=== PATIENT | male | born 1965 | race Caucasian/White ===

== ENCOUNTER 2025-05-11 11:02 | Observation (INO) ==
[2025-05-11] MEDS ORDERED: NovoLIN R (or HumuLIN R) SUBCUT PRN (11:03)
[2025-05-11] MEDS ORDERED: PRECEDEX INJ VIAL ONE (11:09)
[2025-05-11] MEDS ORDERED: KETAMINE HCL ONE (11:09)
[2025-05-11] MEDS: LR 1,000 ML IV 1,000 ML IV SCH (11:49)
[2025-05-11 12:03] LABS: MEAN PLATELET VOLUME 9.0 fL (7.4-11.0)
[2025-05-11 12:09] LABS: RED CELL DISTRIBUTION WIDTH 13.4 % (11.6-16.5)
[2025-05-11 12:12] LABS: COR NA(FOR HYPERGLY) 140 mmol/L (136-145); CREATININE 1.00 mg/dL (0.70-1.30); eGFR NON BLACK RACES > 60 (>60)
[2025-05-11 12:33] VITALS: BMI 33.5
[2025-05-11] MEDS: DILAUDID INJ IVP PRN (12:45)
[2025-05-11] MEDS: OMNIPAQUE 350 mg/mL 100 mL BTL IVP NR (13:44)
[2025-05-11] MEDS: OMNIPAQUE 350 mg/mL 50 mL BTL IVP NR (13:44)
--- NOTE | 2025-05-11 14:53 | CT ---
EXAM: CTA AORTA WITH RUNOFF HISTORY: PVD OSTEOMYLITIS; COMPARISON: April 02, 2025 TECHNIQUE: CTA AORTA WITH RUNOFF 3D reconstructions utilizing axial MIPS imaging was performed and reviewed. Dose reduction techniques including Automated Exposure Control (AEC) and adjustment of mA and kV were utilized. Stenoses are measured using NASCET criteria. Normal is no stenosis. Mild is less than 50% stenosis. Moderate is 50-69% stenosis. Severe is 70% to 99% stenosis. Total occlusion is no detectable patent lumen. FINDINGS: Right posterior solid enhancing 2.2 x 2.2 cm renal mass seen image 81 concerning for malignancy. Mild atrophy right kidney. Cholecystectomy. Lung bases normal. No liver lesion. Spleen is normal. Pancreas normal. Adrenal glands are normal. IVC is normal. No adenopathy. Bowel loops are normal. Pelvis CT demonstrates sigmoid diverticulosis. No bladder stone. No pelvic adenopathy. No ascites. No bone lesion. No aortic aneurysm noted. Celiac artery is patent. Splenic artery is patent. Common hepatic artery is patent. Circumferential mild thickening is seen around the proximal SMA artery and there is short-segment occlusion image 53 involving the proximal SMA artery with distal reconstitution and no bowel ischemic changes noted. KARINA is patent. Bilateral external iliac arteries and bilateral common iliac arteries are patent with mild plaque disease. Bilateral renal arteries are patent. Bilateral internal iliac arteries are patent. Bilateral external iliac arteries and bilateral common femoral arteries are patent. Bilateral femoral and bilateral profunda are patent. Bilateral popliteal arteries demonstrate no occlusion or aneurysm. Three-vessel runoff seen to both ankles with slightly decreased left lower leg contrast attenuation compared to the right lower leg which is nonspecific with no proximal occlusive disease No definite bone destruction seen of the bilateral feet or calcaneal margins. No fracture. No bone lesion IMPRESSION: 1. Abnormal Short-segment occlusion proximal SMA with no bowel ischemic changes. Recommend vascular surgeon consult to assess for stenting 2. No definite osteomyelitis changes of the feet, however since there is a history of PVD osteomyelitis, MRI imaging could better evaluate 3. Three-vessel runoff seen to both ankles with no vascular occlusion or high-grade stenosis of the lower legs 4. Right renal mass concerning for malignancy. Recommend urology consult for biopsy/partial nephrectomy assessment. The mass is larger compared to CT February 20, 2023 and compared to August 21, 2023 THIS IS AN ELECTRONICALLY VERIFIED FINAL REPORT 05/11/2025 2:50 PM - Electronically signed by Yasemin Swanson MD
[2025-05-11] MEDS: NS 250 ML IV 25 ML IV PRN (16:03)
[2025-05-11] MEDS: ZOSYN VIAL 3.375 GRAMS 3.375 G in NS 100 ML IV 100 ML IV SCH (16:03)
[2025-05-11] MEDS: DEMADEX PO SCH (16:27)
[2025-05-11] MEDS: OMNIPAQUE 350 mg/mL 100 mL BTL 100 ML ONE (18:48)
[2025-05-11] MEDS: NS 250 ML IV 250 ML IV ONE (18:48)
[2025-05-11] MEDS: OMNIPAQUE 350 mg/mL 50 mL BTL 50 ML ONE (18:48)
--- NOTE | 2025-05-11 18:59 | DR.H&P ---
H&P History & Physical for Day of: H&P Date: 05/11/25 Chief Complaint Chief Complaint: pain and open wound right great toe. History of Present Illness History of Present Illness: Is a 89-year-old male with history of hypertension and diabetes who is seen in my office yesterday with significant pain and swelling of the left great toe with cyanosis. There is question of osteomyelitis of this area and he has failed p.o. antibiotics. I agree indices are 1.04 and right 0.98 but most waveforms are monophasic. Patient was admitted today for IV antibiotics and for evaluation with CT angiogram. Past Medical History Past Medical History: CVA (Involve left arm and left leg but no residual), Diabetes, Dyslipidemia, GERD and Hypertension Past Surgical History Surgical History: Appendectomy and Tonsillectomy Family History Family Medical History: Diabetes Mellitus Social History Does patient currently use any type of tobacco product: No Have you used tobacco products in the last 12 months: Yes Type of Tobacco Use: Cigarettes How many years tobacco product used: 40 Packs per day or dips/chews per day: 1 Does any household member use tobacco: No Alcohol Use: None Drug Use: None Medications Home Medications: Home Medications Medication Instructions Recorded Confirmed Type apixaban 5 mg tablet (Eliquis) 5 mg PO BID 05/11/25 05/11/25 History aspirin 81 mg tablet 81 mg PO QDAY 05/11/25 05/11/25 History fenofibrate nanocrystallized 145 145 mg PO QDAY 05/11/25 05/11/25 History mg tablet lisinopril 20 mg tablet 20 mg PO QDAY 05/11/25 05/11/25 History melatonin 10 mg disintegrating 10 mg PO HS 05/11/25 05/11/25 History tablet metformin 500 mg tablet 1,000 mg PO BID 05/11/25 05/11/25 Histor y omega-3s 720 mg-dha 300 mg-epa 360 2 cap PO QDAY 05/11/25 05/11/25 History mg-fish oil 1,200 mg capsule omeprazole 40 mg capsule,delayed 40 mg PO QDAY 05/11/25 05/11/25 History release ropinirole 2 mg tablet 2 mg PO TID 05/11/25 05/11/25 History torsemide 20 mg tablet 20 mg PO Q OTHER DAY 10/23/25 10/23/25 H istory I am unsure as to why he is on Eliquis. Allergies Allergies Allergy/AdvReac Type Severity Reaction Status Date / Time No Known Drug Allergies Allergy Unknown Verified 05/11/25 12:39 (NKDA) Labs 05/11/25 11:44 05/11/25 11:44 Labs: Laboratory WBC 11.9 X10^3/uL (3.6-10.0) H 05/11/25 11:44 RBC 5.41 X10^6/uL (4.7-6.0) 05/11/25 11:44 Hgb 15.3 g/dL (13.5-18.0) 05/11/25 11:44 Hct 45.7 % (42.0-54.0) 05/11/25 11:44 MCV 84.5 fL (80.0-100.0) 05/11/25 11:44 MCH 28.3 pg (27.0-34.0) 05/11/25 11:44 MCHC 33.5 g/dL (33.0-35.0) 05/11/25 11:44 RDW 13.4 % (11.6-16.5) 05/11/25 11:44 Plt Count 301 X10^3/uL (150.0-450.0) 05/11/25 11:44 MPV 9.0 fL (7.4-11.0) 05/11/25 11:44 Neut % (Auto) 79.3 % (42.0-75.0) H 05/11/25 11:44 Lymph % (Auto) 11.0 % (21.0-51.0) L 05/11/25 11:44 [facility] % (Auto) 8.2 % (0.0-13.0) 05/11/25 11:44 Eos % (Auto) 1.1 % (0.9-2.9) 05/11/25 11:44 Baso % (Auto) 0.4 % (0.2-1.0) 05/11/25 11:44 Neut # (Auto) 9.5 x10^3/uL (2.2-4.8) H 05/11/25 11:44 Lymph # (Auto) 1.3 X10^3/uL (1.3-2.9) 05/11/25 11:44 [facility] # (Auto) 1.0 x10^3/uL (0.3-0.8) H 05/11/25 11:44 Eos # (Auto) 0.1 x10^3/uL (0.0-0.2) 05/11/25 11:44 Baso # (Auto) 0.1 X10^3/uL (0.0-0.1) 05/11/25 11:44 Absolute Nucleated RBC 0.0 /100WBC 05/11/25 11:44 Sodium 138 mmol/L (136-145) 05/11/25 11:44 Corrected Sodium 140 mmol/L (136-145) 05/11/25 11:44 Potassium 4.3 mmol/L (3.5-5.1) 05/11/25 11:44 Chloride 102 mmol/L (98-107) 05/11/25 11:44 Carbon Dioxide 27.3 mmol/L (21-32) 05/11/25 11:44 BUN 15 mg/dL (7-18) 05/11/25 11:44 Creatinine 1.00 mg/dL (0.70-1.30) 05/11/25 11:44 Est GFR (MDRD) Af Amer > 60 (>60) 05/11/25 11:44 Est GFR (MDRD) Non-Af > 60 (>60) 05/11/25 11:44 Glucose 176 mg/dL (65-99) H 05/11/25 11:44 POC Glucose (mg/dL) 117 mg/dL (65-99) H 05/11/25 15:58 Calcium 9.1 mg/dL (8.5-10.1) 05/11/25 11:44 Corrected Calcium TNP 05/11/25 11:44 Total Bilirubin 0.50 mg/dL (0.2-1.0) 05/11/25 11:44 AST 15 Units/L (15-37) 05/11/25 11:44 ALT 30 Units/L (12-78) 05/11/25 11:44 Alkaline Phosphatase 115 Units/L (46-116) 05/11/25 11:44 Total Protein 8.0 g/dL (6.4-8.2) 05/11/25 11:44 Albumin 3.8 g/dL (3.4-5.0) 05/11/25 11:44 Globulin 4.2 g/dL (2.5-4.5) 05/11/25 11:44 Albumin/Globulin Ratio 0.9 Ratio (1.1-2.1) L 05/11/25 11:44 CT angiogram shows no obvious significant arterial stenosis or occlusion of the aorta or lower extremities. However, patient does have evidence of occlusion of the proximal superior enteric artery. Other arteries to the gut are intact. He denies any type of pain consistent with intestinal angina. There is also evidence of a suspicious mass of the right kidney which is larger than previous CAT scans in 2022 and 2023. Patient will need urology consultation for this. Review of Systems Constitutional: See HPI Eyes: No Symptoms Reported ENT: No Symptoms Reported Respiratory: No Symptoms Reported Cardiovascular: No Symptoms Reported Gastrointestinal: No Symptoms Reported Genitourinary: No Symptoms Reported Musculoskeletal: See HPI Skin: See HPI Neurological: No Symptoms Reported Physical Exam Vital Signs: Vital Signs Temperature 97.5 F Temperature 98 F Pulse Rate [Right Radial] 74 Pulse Rate [Right Radial] 101 Respiratory Rate 18 Respiratory Rate 16 Respiratory Rate 16 Respiratory Rate 16 Blood Pressure [Right Arm] 153/82 Blood Pressure [Right Arm] 152/88 Blood Pressure [Right Arm] 179/91 O2 Sat by Pulse Oximetry 97 O2 Sat by Pulse Oximetry 98 Oriented: Normal, Time, Person and Place Eyes: Normal Ear: Normal Nose: Normal Throat: Normal Respiratory: Clear Throughout Cardiovascular: Normal and Other (Palpable femoral pulses bilaterally. I can palpate no distal pulses either ankle) : Normal Auscultation: Bowel Sounds: Normal Palpation: Normal Tenderness: Normal Skin: Wound (Cyanotic discoloration of the left great toe with small open wounds less than 2 mm of the medial aspect of the great toe with small amount of purulent drainage) Psychiatric: Normal Mood Description: Calm Affect: Normal Speech Pattern: Clear and Appropriate Assessment/Plan (1) Atherosclerosis of [place] arteries of extremities with rest pain, right leg: Status: Acute Plan: Patient is no obvious stenosis or occlusion arterial structures right leg which would require intervention. Will continue him on antibiotics and consult podiatry in regards to his left great toe. (2) Atherosclerosis of [place] arteries of extremities with rest pain, left leg: Status: Acute Plan: No obvious arterial problem of the left leg (3) Type 2 diabetes mellitus without complications: Status: Acute Plan: 1800-calorie ADA diet, sliding scale insulin for now (4) Hyperlipidemia: Status: Acute Plan: Home medications (5) Occlusion of superior mesenteric artery: Status: Acute Plan: The occlusion of the proximal superior mesenteric artery is symptomatic and will not require treatment (6) Right kidney mass: Status: Acute Plan: Patient will need referral to urology for consideration of biopsy of this mass (7) Essential (primary) hypertension: Status: Acute Plan: home medications Review H&P Reviewed: Yes Patient was examined?: Yes
[2025-05-11] MEDS ORDERED: SNACK - Diabetic Appropriate PO SCH (20:00)
[2025-05-11] MEDS: SNACK - Diabetic Appropriate PO SCH (20:22)
[2025-05-11] MEDS: ELIQUIS PO SCH (21:52)
[2025-05-11] MEDS: MELATONIN PO SCH (21:52)
[2025-05-11] MEDS: REQUIP PO SCH (21:52)
[2025-05-11] MEDS: NovoLIN R (or HumuLIN R) SUBCUT PRN (21:53)
[2025-05-12 05:56] LABS: MEAN PLATELET VOLUME 9.4 fL (7.4-11.0); RED CELL DISTRIBUTION WIDTH 13.3 % (11.6-16.5)
[2025-05-12 06:08] LABS: COR CA(FOR HYPOALB) 8.9 mg/dL (8.5-10.1); COR NA(FOR HYPERGLY) 138 mmol/L (136-145); CREATININE 1.03 mg/dL (0.70-1.30); eGFR NON BLACK RACES > 60 (>60)
--- NOTE | 2025-05-12 08:01 | RAD ---
EXAM: FOOT, LEFT HISTORY: LEFT FOOT ULCER ; DM, CVA, HTN, GERD SX: APPY, TONSILS, NECK COMPARISON: 09/23/2024 TECHNIQUE: 3 views FINDINGS: No focal cortical destruction or aggressive periosteal reaction. No acute fracture or dislocation. Moderate hindfoot and midfoot osteoarthritis. Degenerative calcaneal heel spurs. No radiopaque foreign bodies. IMPRESSION: No acute osseous findings. No radiographic evidence of osteomyelitis. THIS IS AN ELECTRONICALLY VERIFIED FINAL REPORT 05/12/2025 7:59 AM - Electronically signed by Selvin Barrera MD
[2025-05-12] MEDS ORDERED: OMEGA DHA EPA FISH OIL PO SCH (09:00)
[2025-05-12] MEDS: ASPIRIN 81 MG CHEWTAB PO SCH (10:53)
[2025-05-12] MEDS: TRICOR TAB 145 MG PO SCH (10:53)
[2025-05-12] MEDS: ZESTRIL TAB 20 MG PO SCH (10:53)
--- NOTE | 2025-05-12 23:19 | NOTE.SOAP ---
Soap Note Note for Day of Date of Exam: 05/12/25 Subjective Data Subjective Data: Patient seen by Podiatry and they would like to debride the left great toe but they are concerned about the duskiness of the great toe despite the normal apppearing CTA . Objective Data Temperature: 98.1 F Pulse Rate: 72 Respiratory Rate: 19 Blood Pressure: 150/99 O2 Sat by Pulse Oximetry: 97 Objective Data: Duskiness of left great toe Assessment Assessment: Painful , dusky left great toe . WBC=10.6 Plan Plan: Contine iv antibiotics and will consider on table arteriogram.
[2025-05-12] MEDS: ZESTRIL TAB 20 MG ONE (23:55)
[2025-05-13 06:51] LABS: MEAN PLATELET VOLUME 8.7 fL (7.4-11.0); RED CELL DISTRIBUTION WIDTH 13.3 % (11.6-16.5)
[2025-05-13 07:03] LABS: COR CA(FOR HYPOALB) 9.2 mg/dL (8.5-10.1); COR NA(FOR HYPERGLY) 140 mmol/L (136-145); CREATININE 1.08 mg/dL (0.70-1.30); eGFR NON BLACK RACES > 60 (>60)
--- NOTE | 2025-05-13 08:02 | MD.NOTE ---
Provider Note Note Note: Patient is a 59 y/o male who was sent in by Dr. Perdomo after being seen in our office and Dr. Perdomo's office for discoloration to his left great toe. Patient had been seen in our office on 05/09 for increasing pain and discoloration to his toe. He states he has been soaking it in epsom salt bath and also has put hydrogen peroxide on the toe. He noticed that it was getting worse so he came to our office. Onn evaluation, pulses were nonpalpable so Dr. Flanagan had the patient urgently follow up with Dr. Perdomo. Dr. Perdomo ordered CTA on patient. O: Vascular: Dorsalis pedis and posterior tibial pulses are nonpalpable. Capillary refill time is instantaneous. Left great toe is cold to touch. Left fifth toe is cool to touch. Dermatological toe with medial callus. has purple appearance but instant CFT to the toe. Derm: Left great hallux has wound that is 5mm x 3mm x 1mm to sub Q. healthy, no purulence, no fluctuance, no crepitus, no probe to bone. Left hallux is cyanotic in nature. Left fifth digit is slightly cyanotic in nature as well. Musculoskeletal: The patient has minor lesser digital contractures. These are fully flexible, however. The patient does have dorsal exostosis at the TMT region. The patient has high arch foot type. The patient has increased calcaneal inclination angle. He does have a posterior spur in the posterior aspect of the calcaneus bilaterally. There are no areas of irritation or ulceration. The patient has good range of motion to the ankle but does have gastroc soleus equinus with the knee fully extended. With the knee bent, able to get to about 5 degrees above neutral. The patient has no other acute issues. Neurological Light touch and protective sensation are intact to the toes. A: Pressure ulcer of other site, stage 3 - wound with no improvement from office evaluation. still very painful. suspect artery . had ABIs without issues on pressures but abnormal waveforms. P: - CTA performed, discussed with Dr. Perdomo, he will take patient to OR likely on Thursday for intervention - XR reviewed, no concerns for Osteomyelitis at this time, patient had MRI performed recently that is consistent with these findings. - Patient started on IV abx per Dr. Perdomo - Patient can WBAT at this time - Will continue to follow and assess after vascular intervention Please contact me with any questions!\ Dr. Laquita Riley
[2025-05-13] MEDS ORDERED: ZESTRIL TAB 20 MG ONE (09:54)
[2025-05-14 06:19] LABS: MEAN PLATELET VOLUME 8.8 fL (7.4-11.0); RED CELL DISTRIBUTION WIDTH 13.4 % (11.6-16.5)
[2025-05-14 06:26] LABS: COR CA(FOR HYPOALB) 9.3 mg/dL (8.5-10.1); COR NA(FOR HYPERGLY) 140 mmol/L (136-145); CREATININE 1.18 mg/dL (0.70-1.30); eGFR NON BLACK RACES > 60 (>60)
[2025-05-14] MEDS ORDERED: ZESTRIL TAB 20 MG ONE (08:42)
[2025-05-14] MEDS ORDERED: GLUCOPHAGE ONE (08:42)
[2025-05-14] MEDS: GLUCOPHAGE PO SCH (09:42)
--- NOTE | 2025-05-14 17:50 | NOTE.SOAP ---
Soap Note Note for Day of Date of Exam: 05/13/25 Subjective Data Subjective Data: Pain better left great toe but still dusky. Objective Data Temperature: 98.4 F Pulse Rate: 74 Respiratory Rate: 19 Blood Pressure: 170/80 O2 Sat by Pulse Oximetry: 96 Objective Data: as above Assessment Assessment: cellulitis left great toe, possible vascular insufficiency Plan Plan: continue IV antibiotics and plan ontable arteriogram.
--- NOTE | 2025-05-14 17:56 | NOTE.SOAP ---
Soap Note Note for Day of Date of Exam: 05/14/25 Subjective Data Subjective Data: Pain is better left great toe. Duskiness remains. No drainage. Continues IV antibiotics Objective Data Temperature: 98.4 F Pulse Rate: 74 Respiratory Rate: 19 Blood Pressure: 170/80 O2 Sat by Pulse Oximetry: 96 Objective Data: Duskiness exists of left great toe. No drainage. No obvious cellulitis Assessment Assessment: Dusky painful left great toe. Arteriogram right is normal. May need on table arteriogram Plan Plan: as above
[2025-05-14] MEDS: COLACE CAP 100 MG PO SCH (21:57)
[2025-05-15 05:56] LABS: MEAN PLATELET VOLUME 9.5 fL (7.4-11.0); RED CELL DISTRIBUTION WIDTH 13.4 % (11.6-16.5)
[2025-05-15 06:25] LABS: COR NA(FOR HYPERGLY) 139 mmol/L (136-145); CREATININE 1.24 mg/dL (0.70-1.30); eGFR NON BLACK RACES > 60 (>60)
[2025-05-15] MEDS ORDERED: GLUCOPHAGE ONE (07:55)
[2025-05-15] MEDS ORDERED: ZESTRIL TAB 20 MG ONE (07:55)
[2025-05-16] MEDS ORDERED: HIBICLENS WASH ONE (03:47)
[2025-05-16] MEDS: HIBICLENS WASH EXT ONE (04:35)
[2025-05-16] MEDS: GLUCOPHAGE ONE (04:41)
[2025-05-16] MEDS ORDERED: ZESTRIL TAB 20 MG ONE (08:09)
[2025-05-16] MEDS: NS 1,000 ML IV 1,000 ML ONE (13:39)
[2025-05-16] MEDS: ZOFRAN INJ 4 MG VIAL ONE (13:55)
[2025-05-16] MEDS: VERSED ONE (13:55)
[2025-05-16] MEDS: REGLAN INJ 10 MG VIAL ONE (13:55)
[2025-05-16] MEDS: DECADRON INJ ONE (13:55)
[2025-05-16] MEDS: FENTANYL VIAL INJ 100 mcg ONE (13:55)
[2025-05-16] MEDS: DIPRIVAN VIAL 20 ML ONE ×2 (13:56→15:03)
[2025-05-16] MEDS: HEPARIN SODIUM INJ 5000 UNITS ONE (13:56)
[2025-05-16] MEDS: OFIRMEV IV 1000 MG VIAL 1,000 MG/100 ML VIAL IV ONE (13:56)
[2025-05-16] MEDS: XYLOCAINE 2 % (PLAIN) ONE (13:56)
[2025-05-16] MEDS: NS 1,000 ML IV 900 ML IV PRN (14:15)
[2025-05-16] MEDS: PEPCID 20 MG VIAL ONE (14:20)
[2025-05-16] MEDS: VERSED IVP PRN (14:30)
[2025-05-16] MEDS ORDERED: XYLOCAINE 2 % (PLAIN) PRN (14:32)
[2025-05-16] MEDS: PROPOFOL IVP PRN (14:33)
[2025-05-16] MEDS: PRECEDEX INJ VIAL IVP PRN (14:33)
[2025-05-16] MEDS: FENTANYL VIAL INJ 100 mcg IVP PRN (14:34)
--- NOTE | 2025-05-16 14:34 | EKG ---
Test Reason : preop Blood Pressure : */* mmHG Vent. Rate : 68 BPM Atrial Rate : 68 BPM P-R Int : 144 ms QRS Dur : 96 ms QT Int : 392 ms P-R-T Axes : 18 29 59 degrees QTc Int : 416 ms Normal sinus rhythm Incomplete right bundle branch block Nonspecific T wave abnormality Borderline ECG No previous ECGs available Confirmed by Casey Zapata MD ([id number]) on 05/17/2025 6:40:03 AM Referred By: Confirmed By: Casey Zapata MD
[2025-05-16] MEDS: ZOFRAN INJ 4 MG VIAL IVP PRN (14:36)
[2025-05-16] MEDS: PEPCID 20 MG VIAL IVP PRN (14:38)
[2025-05-16] MEDS: REGLAN INJ 10 MG VIAL IVP PRN (14:40)
[2025-05-16] MEDS: OFIRMEV IV 1000 MG VIAL 1,000 MG/100 ML VIAL IV PRN (14:41)
[2025-05-16] MEDS: MARCAINE 0.5% ONE (14:52)
[2025-05-16] MEDS: VISIPAQUE 50 ML ONE (14:52)
[2025-05-16] MEDS: VISIPAQUE 100 ML ONE (14:52)
[2025-05-16] MEDS: HEPARIN 1,000 UNIT/500 ML-NS 3,000 UNIT/1,500 ML IV.SOLN ONE (14:52)
[2025-05-16] MEDS: DECADRON INJ IVP PRN (14:53)
[2025-05-16] MEDS ORDERED: HEPARIN SODIUM INJ 5000 UNITS IVP PRN (14:56)
[2025-05-16] MEDS: NEO-SYNEPHRINE INJ IVP PRN (14:59)
[2025-05-16] MEDS ORDERED: DIPRIVAN VIAL 20 ML ONE (15:31)
[2025-05-16] MEDS: KETAMINE HCL IVP PRN (15:33)
[2025-05-16] MEDS ORDERED: PROTAMINE SULFATE 50 MG VIAL ONE (15:37)
[2025-05-16] MEDS: PROTAMINE SULFATE 50 MG VIAL IVP PRN (15:37)
--- NOTE | 2025-05-16 17:23 | OR.IMMED ---
IMMEDIATE POST-OP NOTE Immediate Post-Op Note Date of surgery/procedure: 05/16/25 Pre-Op Diagnosis: Critical ischemia left leg with painful dusky left great toe despite relatively normal-appearing CT angiogram by report Post-Op Diagnosis: Patient had evidence of significant stenosis of the left common iliac artery which was not noted on the CT angiogram. Patient noted on CT angiogram to have three-vessel runoff to the left foot however the anterior tibial artery which is where the great toe receives his blood flow is occluded in its midportion but does reconstitute distally. The left common iliac artery was stented I could not get a wire safely across the left anterior tibial artery either from above or below. We will observe Procedure: Aortogram, arteriogram left lower extremity, stenting left common iliac artery Description of Procedure: dictated Surgeon/Marketing Technologist: Gonzalo Perdomo MD, FACS Findings: See above Estimated Blood Loss: 100 cc Complications: None Progress Notes: Patient returned to the floor. Probably discharge home later today.
[2025-05-16 17:50] VITALS: O2SAT 96
[2025-05-16 18:22] VITALS: BP 124/89; PULSE 75; RESP 18; TEMP 98.5
--- NOTE | 2025-05-16 18:22 | NOTE.SOAP ---
Soap Note Note for Day of Date of Exam: 05/15/25 Subjective Data Subjective Data: Although CT angiogram read as normal patient still with pain of the left great toe with duskiness of the left great toe Objective Data Temperature: 98.5 F Pulse Rate: 75 Respiratory Rate: 18 Blood Pressure: 124/89 O2 Sat by Pulse Oximetry: 96 Objective Data: Cool left great toe with duskiness Assessment Assessment: Arterial insufficiency of the left great toe Plan Plan: Plan on table arteriogram and aortogram with possible arterial invention depending on findings
--- NOTE | 2025-05-16 18:30 | W.DIS.FURT ---
Summary of Discharge Discharge Summary of Date Date of Exam: 05/16/25 Admission Date Date of Admission: 05/11/25 Admission Diagnosis Hospital Course: This is a 59-year-old male who was seen in the office with some purulent drainage from punctate lesions to the medial aspect of left great toe with a dusky painful left great toe. Patient admitted for observation and performed CT angiogram. CT angiogram performed showing no obvious arterial occlusions of either lower extremity. Patient seen in consultation by the podiatry service and placed on IV antibiotics. 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 This will be followed . 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 CT scan also noted three-vessel runoff however on ontable l arteriogram he had complete occlusion of the proximal right anterior tibial artery which supplies the right great toe with I could not get a wire across. He underwent stenting of the right iliac artery stenosis and hjope this will give enough inflow to heal the left foot if not we will need to plan another intervention. Patient discharged home today on his usual medications to include his Eliquis which he isalrady on plus aspirin 81 mg daily. He will follow-up in 1 week. Again he has follow-up already scheduled with Urology in [facility] on 18 May. Vital Signs: Vital Signs (72 hours) 05/13/25 19:00 05/13/25 20:00 05/13/25 20:10 Temperature 98.4 F Pulse Rate Pulse Rate [Right Radial] 74 Respiratory Rate 19 Blood Pressure Blood Pressure [Right Arm] 170/80 136/82 O2 Sat by Pulse Oximetry 96 Oxygen Delivery Method Room Air Room Air 05/13/25 22:37 05/13/25 23:07 05/13/25 23:25 Temperature 98.3 F Pulse Rate Pulse Rate [Right Radial] 80 Respiratory Rate 17 19 18 Blood Pressure Blood Pressure [Right Arm] 129/60 O2 Sat by Pulse Oximetry 91 L Oxygen Delivery Method Room Air 05/13/25:29 05/14/25 03:46 05/14/25 08:00 Temperature 98.2 F 98.9 F Pulse Rate Pulse Rate [Right Radial] 70 82 Respiratory Rate 18 20 Blood Pressure Blood Pressure [Right Arm] 131/74 131/74 O2 Sat by Pulse Oximetry 95 94 L 95 Oxygen Delivery Method Room Air Room Air Room Air 05/14/25 10:01 05/14/25 12:00 05/14/25 16:00 Temperature 98.2 F 97.5 F L Pulse Rate Pulse Rate [Right Radial] 74 82 Respiratory Rate 20 19 Blood Pressure Blood Pressure [Right Arm] 163/75 177/79 O2 Sat by Pulse Oximetry 96 97 Oxygen Delivery Method Room Air Room Air Room Air 05/14/25 16:06 05/14/25 16:15 05/14/25 16:36 Temperature Pulse Rate Pulse Rate [Right Radial] Respiratory Rate 20 18 Blood Pressure Blood Pressure [Right Arm] 168/92 O2 Sat by Pulse Oximetry Oxygen Delivery Method 05/14/25 17:50 05/14/25 17:56 05/14/25 19:00 Temperature 98.4 F 98.4 F Pulse Rate 74 74 Pulse Rate [Right Radial] Respiratory Rate 19 19 Blood Pressure 170/80 170/80 Blood Pressure [Right Arm] O2 Sat by Pulse Oximetry 96 96 Oxygen Delivery Method Room Air 05/14/25 19:55 05/14/25 21:58 05/14/25 22:28 Temperature 97.6 F Pulse Rate Pulse Rate [Right Radial] 73 Respiratory Rate 18 19 18 Blood Pressure Blood Pressure [Right Arm] 144/72 O2 Sat by Pulse Oximetry 96 Oxygen Delivery Method Room Air 05/14/25 23:37 05/15/25 04:00 05/15/25 07:00 Temperature 98.1 F 98.0 F Pulse Rate Pulse Rate [Right Radial] 73 67 Respiratory Rate 17 19 Blood Pressure Blood Pressure [Right Arm] 132/71 128/68 O2 Sat by Pulse Oximetry 93 L 94 L Oxygen Delivery Method Room Air Room Air Room Air 05/15/25 07:29 05/15/25 12:00 05/15/25 16:00 Temperature 98.3 F 98.2 F 98.5 F Pulse Rate Pulse Rate [Right Radial] 79 73 75 Respiratory Rate 18 17 18 Blood Pressure Blood Pressure [Right Arm] 157/80 139/88 124/89 O2 Sat by Pulse Oximetry 96 96 96 Oxygen Delivery Method Room Air Room Air Room Air 05/15/25 19:00 05/15/25 20:00 05/15/25 21:50 Temperature 98 F Pulse Rate Pulse Rate [Right Radial] 79 Respiratory Rate 18 20 Blood Pressure Blood Pressure [Right Arm] 131/74 O2 Sat by Pulse Oximetry 94 L Oxygen Delivery Method Room Air Room Air 05/15/25 22:20 05/16/25 00:00 05/16/25 04:00 Temperature 97.9 F 98 F Pulse Rate Pulse Rate [Right Radial] 72 78 Respiratory Rate 18 18 18 Blood Pressure Blood Pressure [Right Arm] 132/63 133/75 O2 Sat by Pulse Oximetry 96 95 Oxygen Delivery Method Room Air Room Air 05/16/25 07:00 05/16/25 08:00 05/16/25 12:00 Temperature 98.2 F 98 F Pulse Rate Pulse Rate [Right Radial] 72 76 Respiratory Rate 18 18 Blood Pressure Blood Pressure [Right Arm] 138/68 140/81 O2 Sat by Pulse Oximetry 95 96 Oxygen Delivery Method Room Air Room Air Room Air 05/16/25 13:41 05/16/25 15:55 05/16/25 16:10 Temperature 98.5 F 98.4 F Pulse Rate 68 Pulse Rate [Right Radial] 64 66 Respiratory Rate 16 17 16 Blood Pressure 156/84 Blood Pressure [Right Arm] 93/56 100/57 O2 Sat by Pulse Oximetry 93 L 96 92 L Oxygen Delivery Method Room Air Room Air Room Air 05/16/25 16:25 05/16/25 16:40 05/16/25 16:55 Temperature 97.5 F L 97.4 F L 98 F Pulse Rate Pulse Rate [Right Radial] 68 74 73 Respiratory Rate 18 18 16 Blood Pressure Blood Pressure [Right Arm] 139/74 119/76 129/59 O2 Sat by Pulse Oximetry 95 94 L 95 Oxygen Delivery Method Room Air Room Air Room Air 05/16/25 17:45 05/16/25 18:22 Temperature 97.9 F 98.5 F Pulse Rate 75 Pulse Rate [Right Radial] 80 Respiratory Rate 20 18 Blood Pressure 124/89 Blood Pressure [Right Arm] 127/60 O2 Sat by Pulse Oximetry 96 96 Oxygen Delivery Method Room Air Labs: Laboratory Last Values WBC 9.9 X10^3/uL (3.6-10.0) 05/15/25 05:13 RBC 4.94 X10^6/uL (4.7-6.0) 05/15/25 05:13 Hgb 14.1 g/dL (13.5-18.0) 05/15/25 05:13 Hct 41.7 % (42.0-54.0) L 05/15/25 05:13 MCV 84.5 fL (80.0-100.0) 05/15/25 05:13 MCH 28.6 pg (27.0-34.0) 05/15/25 05:13 MCHC 33.8 g/dL (33.0-35.0) 05/15/25 05:13 RDW 13.4 % (11.6-16.5) 05/15/25 05:13 Plt Count 291 X10^3/uL (150.0-450.0) 05/15/25 05:13 MPV 9.5 fL (7.4-11.0) 05/15/25 05:13 Neut % (Auto) 69.4 % (42.0-75.0) 05/15/25 05:13 Lymph % (Auto) 17.4 % (21.0-51.0) L 05/15/25 05:13 [place] % (Auto) 11.2 % (0.0-13.0) 05/15/25 05:13 Eos % (Auto) 1.3 % (0.9-2.9) 05/15/25 05:13 Baso % (Auto) 0.7 % (0.2-1.0) 05/15/25 05:13 Neut # (Auto) 6.9 x10^3/uL (2.2-4.8) H 05/15/25 05:13 Lymph # (Auto) 1.7 X10^3/uL (1.3-2.9) 05/15/25 05:13 [place] # (Auto) 1.1 x10^3/uL (0.3-0.8) H 05/15/25 05:13 Eos # (Auto) 0.1 x10^3/uL (0.0-0.2) 05/15/25 05:13 Baso # (Auto) 0.1 X10^3/uL (0.0-0.1) 05/15/25 05:13 Absolute Nucleated RBC 0.1 /100WBC 05/15/25 05:13 Sodium 138 mmol/L (136-145) 05/15/25 05:13 Corrected Sodium 139 mmol/L (136-145) 05/15/25 05:13 Potassium 4.1 mmol/L (3.5-5.1) 05/15/25 05:13 Chloride 101 mmol/L (98-107) 05/15/25 05:13 Carbon Dioxide 27.0 mmol/L (21-32) 05/15/25 05:13 BUN 18 mg/dL (7-18) 05/15/25 05:13 Creatinine 1.24 mg/dL (0.70-1.30) 05/15/25 05:13 Est GFR (MDRD) Af Amer > 60 (>60) 05/15/25 05:13 Est GFR (MDRD) Non-Af > 60 (>60) 05/15/25 05:13 Glucose 126 mg/dL (65-99) H 05/15/25 05:13 POC Glucose (mg/dL) 113 mg/dL (65-99) H 05/16/25 16:36 Calcium 8.9 mg/dL (8.5-10.1) 05/15/25 05:13 Corrected Calcium TNP 05/15/25 05:13 Total Bilirubin 0.60 mg/dL (0.2-1.0) 05/15/25 05:13 AST 13 Units/L (15-37) L 05/15/25 05:13 ALT 25 Units/L (12-78) 05/15/25 05:13 Alkaline Phosphatase 87 Units/L (46-116) 05/15/25 05:13 Total Protein 7.7 g/dL (6.4-8.2) 05/15/25 05:13 Albumin 3.4 g/dL (3.4-5.0) 05/15/25 05:13 Globulin 4.3 g/dL (2.5-4.5) 05/15/25 05:13 Albumin/Globulin Ratio 0.8 Ratio (1.1-2.1) L 05/15/25 05:13 Blood Type A POSITIVE 05/16/25 13:52 Antibody Screen Negative 05/16/25 13:52 Reason For Visit: LEFT GREAT TOE OSTEOMYLITIS Discharge Date Discharge Date: 05/16/25 Discharge Diagnosis All Active Problems (Updated 05/11/25 @ 21:40 by Porter Perdomo) Abrasion of great toe, left, infected (Acute) Essential (primary) hypertension (Acute) Right kidney mass (Acute) Occlusion of superior mesenteric artery (Acute) Hyperlipidemia (Acute) Type 2 diabetes mellitus without complications (Acute) Atherosclerosis of [place] arteries of extremities with rest pain, left leg (Acute) Atherosclerosis of [place] arteries of extremities with rest pain, right leg (Acute) Plan of Treatment: Continue with present treatment and follow up plan. Pt is to keep follow up appointment as instructed and take medications as ordered. Discharge Medications Discharge Medications: No Known Drug Allergies (NKDA) Allergy (Unknown, Verified 05/11/25 12:39) CONTINUE taking the following medications apixaban 5 mg tablet (Eliquis) 5 mg PO BID 05/11/25 [History] aspirin 81 mg tablet 81 mg PO QDAY 05/11/25 [History] fenofibrate nanocrystallized 145 mg tablet 145 mg PO QDAY 05/11/25 [History] lisinopril 20 mg tablet 20 mg PO QDAY 05/11/25 [History] melatonin 10 mg disintegrating tablet 10 mg PO HS 05/11/25 [History] metformin 500 mg tablet 1,000 mg PO BID 05/11/25 [History] omega-3s 720 mg-dha 300 mg-epa 360 mg-fish oil 1,200 mg capsule 2 cap PO QDAY 05/11/25 [History] omeprazole 40 mg capsule,delayed release 40 mg PO QDAY 05/11/25 [History] ropinirole 2 mg tablet 2 mg PO TID 05/11/25 [History] torsemide 20 mg tablet 20 mg PO Q OTHER DAY 05/11/25 [History] Discharge Disposition Assessment: see hospital course Discharge Plan Discharge Plan Hospital Course: This is a 59-year-old male who was seen in the office with some purulent drainage from punctate lesions to the medial aspect of left great toe with a dusky painful left great toe. Patient admitted for observation and performed CT angiogram. CT angiogram performed showing no obvious arterial occlusions of either lower extremity. Patient seen in consultation by the podiatry service and placed on IV antibiotics. 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 This will be followed . 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 CT scan also noted three-vessel runoff however on ontable l arteriogram he had complete occlusion of the proximal right anterior tibial artery which supplies the right great toe with I could not get a wire across. He underwent stenting of the right iliac artery stenosis and hjope this will give enough inflow to heal the left foot if not we will need to plan another intervention. Patient discharged home today on his usual medications to include his Eliquis which he isalrady on plus aspirin 81 mg daily. He will follow-up in 1 week. Again he has follow-up already scheduled with Urology in [facility] on 18 May. Patient Disposition: 01 HOME, SELF-CARE Condition: Stable Health Concerns: Post Hospitalization: new medications and changes needed to prevent readmission or further decline. Pt educated and given instructions on all concerns. Plan of Treatment: Continue with present treatment and follow up plan. Pt is to keep follow up appointment as instructed and take medications as ordered. Assessment: see hospital course Prescription drug monitoring program results: PDMP was not reviewed Prescriptions: Continued metformin 500 mg tablet 1,000 mg PO BID torsemide 20 mg Tablet 20 mg PO Q OTHER DAY lisinopril 20 mg tablet 20 mg PO QDAY omeprazole 40 mg capsule,delayed release(DR/EC) 40 mg PO QDAY fenofibrate nanocrystallized 145 mg tablet 145 mg PO QDAY Eliquis 5 mg Tablet 5 mg PO BID [id number] oil [Fish Oil] 720-1,200 mg Capsule 2 cap PO QDAY melatonin 10 mg Tablet,Disintegrating 10 mg PO HS ropinirole 2 mg Tablet 2 mg PO TID aspirin 81 mg Tablet 81 mg PO QDAY Orders to Discharge Patient Discharge Orders: Discharge (Routine); Ordered 05/16/25 Ordered By: Porter Perdomo Follow ups/Referrals Follow ups/Referrals: Porter Perdomo [Primary Care Provider, Unknown] - 1 WEEK Instructions Instructions: Endovascular Therapy for Peripheral Vascular Disease: What to Know After Stand Alone Forms: Excuse From Work or School, Find Help Web Site, Post Hospital Follow Up Care Print Language: YI
--- NOTE | 2025-05-16 18:42 | DR.OPNOTE ---
OP NOTE Pre-Op Diagnosis: Critical ischemia left great toe Post-Op Diagnosis: Left common iliac artery severe stenosis, occlusion left AT artery Procedure Date Date Of Procedure: 05/16/25 Procedure: PROCEDURE: Diagnostic aortogram, diagnostic arteriogram left leg, stenting left common iliac artery NARRATIVE: The patient was taken to the operative suite and placed in the supine position. The right groin and entire left leg were prepped and draped in sterile fashion. Patient was given intravenous sedation supervised by myself. Timeout for the procedure obtained. Ultrasound used to identify the femoral artery in the right groin and the skin overlying it infiltrated with 0.5% Marcaine. Ultrasound used to guide puncture of the right femoral artery and a 0.012 inch guidewire placed. Incision made over the guidewire at the skin edge with a #11 knife blade and the micro sheath placed over the guidewire into the femoral artery. Small wire exchanged for a 0.035 inch Advantage Glidewire and the micro sheath exchanged for a 5 [place] vascular sheath. Patient given 5000 units of intravenous heparin. Omni catheter placed over the guidewire into the aorta and power injector used to perform aortogram showing normal aorta and severe stenosis over a narrow segment of the proximal left common iliac artery. The Omni catheter was then used to direct the guidewire down the left common iliac artery to the distal left external iliac artery. The Omni catheter exchanged for a [place] catheter and sequential arteriograms performed of the left leg showing occlusion of the midportion of the left anterior tibial artery with reconstitution distally. Again, this was not noted on the original CT angiogram.. The [place] catheter removed and over the guidewire the 5 [place] sheath was exchanged for a 7 [place] Catpult Sheath which was parked proximal left superficial femoral artery. [place] catheter and the 0.035 guidewire used to traverse the arteries of the left leg ultimately ending in the proximal left anterior tibial artery. This was selective catheterization. [place] catheter used with wire but I cannot get across the occlusion of the mid and distal left anterior tibial artery. Therefore elected to perform stenting of the left coronary artery in hopes that inflow increase will take care of the problem. We pulled the catapult sheath back into the aorta and performed arteriogram and a marked area that need to be stented and over a 0.035 inch wire we placed a [employer] 8 mm x 37 mm iliac balloon expandable stent and dilated it. Introduced and catheter removed. Postprocedure arteriogram showed excellent result. Wires and devices removed from the [place] sheath. This sheath pulled back into the aorta and a 0.035 guidewire placed. [place] sheath exchanged over the wire for a Angio-Seal device used to close the puncture of the right femoral artery. Patient taken to same-day surgery in good condition. Type of Anesthesia: Local (0.5% Marcaine) Anesthesia Comment: plus MAC Findings: Severe stenosis of the left common iliac artery not noted on CT angio gram. Occlusion of the midportion of the left anterior tibial artery which supplies the left great toe, again reported on CT angiogram Type of Fluids Used:: Lactated Ringers Total Amount of Fluid Infused:: 900cc Urine output: 200cc EBL: 100cc Hardware: [employer] 8 mm and 37 mm balloon expandable stent Complications:: none Needle/Sponge Count:: correct Disposition/Condition: Pt. tolerated procedure without difficulty. Taken to [facility] in stable condition.
== END 2025-05-16 18:30 | disposition home or self-care (01) ==
LOC: MED/SURG
PROVIDERS: ADMIT Surgery; ATTEND Surgery
DX: Z01.810 Encounter for preprocedural cardiovascular examination; E11.42 Type 2 diabetes mellitus with diabetic polyneuropathy; K21.9 Gastro-esophageal reflux disease without esophagitis; Z86.73 Personal history of transient ischemic attack (TIA), and cerebral infarction without residual deficits; Z65.8 Other specified problems related to psychosocial circumstances; E83.51 Hypocalcemia; I10 Essential (primary) hypertension; L97.529 Non-pressure chronic ulcer of other part of left foot with unspecified severity; I70.222 Atherosclerosis of native arteries of extremities with rest pain, left leg; L03.032 Cellulitis of left toe; E11.621 Type 2 diabetes mellitus with foot ulcer; E78.5 Hyperlipidemia, unspecified; E11.65 Type 2 diabetes mellitus with hyperglycemia; N28.89 Other specified disorders of kidney and ureter; M86.172 Other acute osteomyelitis, left ankle and foot